=== PATIENT | female | born 1935 | race Caucasian/White ===

== ENCOUNTER 2020-07-17 11:34 | Emergency (ER) | payer MEDICARE ==
[2020-07-17] MEDS ORDERED: MORPHINE 2 MG SYG ONE (13:18)
== END 2020-07-17 15:21 | disposition home or self-care (01) ==
LOC: EDH 11:34
DX: S62.92XA Unspecified fracture of left hand, initial encounter for closed fracture (principal); I10 Essential (primary) hypertension; Z88.2 Allergy status to sulfonamides; W18.39XA Other fall on same level, initial encounter; Y93.89 Activity, other specified; Y92.22 Religious institution as the place of occurrence of the external cause; Y99.8 Other external cause status
CPT/HCPCS: 29125; 70450; 72125; 73030; 73070; 73110; 73502; 96372